=== PATIENT | male | born 1975 | race Caucasian/White ===

== ENCOUNTER 2020-10-23 11:20 | Emergency (ER) | payer BC ==
[~2020-10-23] VITALS: Ht 182.9 cm; Wt 101.9 kg
[~2020-10-23 11:20] MED LIST: ACET65TA OR; IBUP600T OR; VICO5TAB OR
[2020-10-23 12:08] LABS: BASO % 0.4 % (0.0-1.0); EOS # 0.2 10^3/uL (0.0-0.5); EOS % 4.8 % (0.0-3.0); HEMATOCRIT 44.6 % (42.0-52.0); HEMOGLOBIN 15.1 g/dl (13.5-17.5); LYMPH # 1.6 10^3/uL (1.5-5.0); LYMPH % 35.1 % (24.0-44.0); MEAN CORPUSCULAR HEMOGLOBIN 30.1 pg (27.0-33.0); MEAN CORPUSCULAR HGB CONC 33.9 g/dl (32.0-36.5); MONO # 0.4 10^3/uL (0.0-0.8); NEUTROPHILS # 2.3 10^3/uL (1.5-8.5); NEUTROPHILS % 50.5 % (36.0-66.0); PLATELET COUNT, AUTOMATED 218 10^3/uL (150-450); RED BLOOD COUNT 5.01 10^6/uL (4.30-6.10); WHITE BLOOD COUNT 4.6 10^3/uL (4.0-10.0)
--- NOTE | 2020-10-23 12:26 | REP ---
INDICATION: CHEST PAIN. COMPARISON: 11/06/2015 also portable TECHNIQUE: Portable FINDINGS: The technique utilized in obtaining the radiograph has magnified the cardiac silhouette and accentuated the interstitial markings. The superior mediastinal structures are midline. The cardiac silhouette is unremarkable in size, shape, and position. The diaphragmatic surfaces of the lungs are regular, and the costophrenic angles are clear. The pulmonary nevarez are clear. The imaged osseous structures are intact. IMPRESSION: There is no acute cardiopulmonary disease. <Electronically signed by Elan Eason > 10/23/20 [id number]
[2020-10-23 12:34] LABS: ALBUMIN 4.5 GM/DL (3.2-5.2); ALT/SGPT 42 U/L (12-78); BILIRUBIN,DIRECT 0.3 MG/DL (0.0-0.2); BILIRUBIN,TOTAL 1.3 MG/DL (0.2-1.0); BLOOD UREA NITROGEN 13 MG/DL (7-18); CALCIUM LEVEL 9.1 MG/DL (8.5-10.1); CARBON DIOXIDE LEVEL 28 MEQ/L (21-32); CHLORIDE LEVEL 106 MEQ/L (98-107); CK-MB VALUE MASS 1.3 NG/ML (<3.6); CPK CREATINE PHOSPHOKINASE 141 U/L (39-308); CREATININE FOR GFR 0.94 MG/DL (0.70-1.30); GLOMERULAR FILTRATION RATE > 60.0 (>60); GLUCOSE, FASTING 94 MG/DL (70-100); LIPASE 133 U/L (73-393); MB/CK RELATIVE INDEX 0.92 (< OR =4); NT-PRO BNP 16 PG/ML (<125); POTASSIUM SERUM 4.1 MEQ/L (3.5-5.1); SODIUM LEVEL 141 MEQ/L (136-145); TOTAL PROTEIN 7.8 GM/DL (6.4-8.2); TROPONIN I < 0.02 NG/ML (< 0.10)
[2020-10-23] MEDS ORDERED: ISOVUE-370 76% 100ML VIAL As Ordered ONE (13:16)
--- NOTE | 2020-10-23 13:55 | REP ---
INDICATION: pleuritic chest pain. COMPARISON: Chest radiograph today TECHNIQUE: CT angiogram chest performed following the intravenous administration of 100 cc of Isovue 370. Sagittal and coronal reconstruction images are performed. FINDINGS: Lungs: Clear, no infiltrate or nodule. Mediastinum: No adenopathy. Pulmonary arteries: No evidence of pulmonary embolism. Jessica: No adenopathy. Axilla: No adenopathy. Pleura: No effusion. Heart: Not enlarged. Thoracic aorta: No aneurysm or dissection. Upper abdominal structures: Unremarkable. Visualized osseous structures: There are mild degenerative changes of the spine. IMPRESSION: No CT evidence of pulmonary embolism. No infiltrate seen. <Electronically signed by Selwyn Ly > 10/23/20 [id number]
[2020-10-23 14:14] VITALS: BP 124/76
--- NOTE | 2020-10-23 19:08 | ECGEPIP ---
[facility] - ED Test Date: 2020-10-23 Pat Name: GHAZALA QUINTANILLA Department: Room: - Gender: Male [employer] Keeper: : 1975 Requested By: Yoni Castle Order Number: [id number] Reading MD: Ambar Francsi Measurements Intervals Bailey Rate: 85 P: 67 WI: 160 QRS: 7 QRSD: 88 T: 30 QT: 374 QTc: 445 Interpretive Statements Normal sinus rhythm with sinus arrhythmia NSTTW abnormalities increased rate 11/06/15 Electronically Signed on 10-23-2020 19:08:06 EDT by Ambar Francis
== END 2020-10-23 14:19 | disposition home or self-care (01) ==
LOC: M ED 11:20
DX: R07.89 Other chest pain (principal)
CPT/HCPCS: 71045; 71275; 80048; 80076; 82550; 82553; 83690; 83880; 84484; 85025; 93005; 93041; 94760; 99285; Q9967